=== PATIENT | female | born 1945 | race Caucasian/White ===

== ENCOUNTER 2020-02-14 21:11 | Emergency (ER) | payer BC ==
[~2020-02-14] VITALS: Ht 160 cm; Wt 90.7 kg
[~2020-02-14 21:11] MED LIST: CAPT25TA3 PO; HYDR50TA3 PO; SYN50 PO
[2020-02-14 21:15] VITALS: BP_SYST 150
--- NOTE | 2020-02-14 21:15 | NUR ---
Patient to ER bed 5 to gown for evaluation. Side rails up. Report given to NEREYDA SOLIS.
--- NOTE | 2020-02-14 21:18 | NUR ---
Patient came to ER. C/O left eye pain x today. Patient states " left eye blurred, left eye burning and pain, possible something in my eye." Hx Hypothyroid, HTN and Kidney problem. A/O,X4, left eye pain, burning, pain rate 10/10, BP 150/69.
--- NOTE | 2020-02-14 21:36 | NUR ---
EVANS Lopez at bedside examining patient.
[2020-02-14] MEDS ORDERED: TETRACAINE HCL/PF 0.5% OPHTHALMIC DROPS 4 ML OP ONE (21:45)
--- NOTE | 2020-02-14 22:23 | NUR ---
Patient came back from CT scan.
--- NOTE | 2020-02-14 22:36 | NUR ---
ER Dr. Lopez explained treatment plan -more level care and eye pressure test left eye. Patient refused to transfer via EMS, her will take her to another hospital.
--- NOTE | 2020-02-14 22:47 | NUR ---
Patient given written and verbal discharge instructions and verbalizes understanding. ER MD discussed with patient the results and treatment provided. Patient in stable condition. ID arm band removed. No Rx given. Patient educated on pain management and go to another hospital -[facility]. Pain Scale 5/10. Opportunity for questions provided and answered.
[2020-02-14 22:48] VITALS: BP_SYST 150
--- NOTE | 2020-02-14 22:48 | NUR ---
Spoke with patient's family, given discharge instruction and per ERMD recommended to go to another hospital-[facility] for high level of care.
== END 2020-02-14 22:48 | disposition home or self-care (01) ==
LOC: SED 21:11
DX: H57.12 Ocular pain, left eye (principal); Z79.899 Other long term (current) drug therapy
CPT/HCPCS: 70486-TC; 99284

== ENCOUNTER 2020-10-21 20:46 | Emergency (ER) | payer BC, MEDICARE ==
[~2020-10-21] VITALS: Ht 160 cm; Wt 95.3 kg
[2020-10-21 21:05] VITALS: BP_SYST 149
[2020-10-21] MEDS ORDERED: MORPHINE 2 MG/ML INJ. SYRINGE IM ONE (21:30)
[2020-10-21] MEDS ORDERED: MORPHINE 2 MG/ML INJ. SYRINGE ONE (21:38)
[2020-10-21 23:23] VITALS: BP_SYST 149
== END 2020-10-21 23:18 | disposition home or self-care (01) ==
LOC: SED 20:46
DX: S83.92XA Sprain of unspecified site of left knee, initial encounter (principal); W18.39XA Other fall on same level, initial encounter; Y93.89 Activity, other specified; Y92.099 Unspecified place in other non-institutional residence as the place of occurrence of the external cause; Y99.8 Other external cause status
CPT/HCPCS: 73564; 96372; 99283; J2270